=== PATIENT | female | born 1965 | race Caucasian/White ===

== ENCOUNTER 2019-01-14 13:43 | Emergency (ER) | payer OTHER ==
[~2019-01-14] VITALS: Ht 162.6 cm; Wt 80.7 kg
[2019-01-14] MEDS ORDERED: HYDROCHLOROTHIA50 MG (14:11)
== END 2019-01-14 17:12 | disposition home or self-care (01) ==
LOC: ER 13:43
DX: S01.82XA Laceration with foreign body of other part of head, initial encounter (principal); W18.39XA Other fall on same level, initial encounter; Y93.89 Activity, other specified; Y92.832 Beach as the place of occurrence of the external cause; Y99.8 Other external cause status